=== PATIENT | male | born 1960 | race Caucasian/White ===

== ENCOUNTER 2017-05-12 10:04 | Emergency (ER) | payer OTHER ==
[~2017-05-12] VITALS: Ht 180.3 cm; Wt 93.0 kg
[~2017-05-12 10:04] MED LIST: ALBU18HF IH; CELE100C PO; CEPH-264 PO; ESOM20CA PO; FLUT12AE IH; LISI40TA PO
--- NOTE | 2017-05-12 10:23 | PHYS DOC ---
Past History Past Medical History: Bronchitis, Hypertension, Other Past Surgical History: Knee Replacement, Other Smoking: Cigarettes Alcohol Use: Occasionally Drug Use: None Adult General Chief Complaint Chief Complaint: CHEST PAIN HPI HPI Patient is a 56 year old M who presents with epigastric pain for the past 3 days. Patient states he is ran out of his Nexium and started having increasing epigastric pain and belching for the past 3 days. The pain has been persistent therefore decided to come the emergency room to be evaluated. Patient denies a history of MO or stents. Patient's only cardiac risk factors smoking and hypertension. Patient denies any fevers. Patient denies any nausea/vomiting/ diarrhea. Patient has no other complaints. Review of Systems Review of Systems GEN: Denies fevers, chills, sweats HEENT: Denies blurred vision, sore throat CV: Denies chest pain RESP: Denies shortness of air, cough GI: Epigastric pain NEURO: Denies confusion, dizziness MSK: Denies weakness, joint pain/swelling All other systems were reviewed and found to be within normal limits, except as documented in this note. Current Medications Current Medications Current Medications Medications (Trade) Dose Ordered Sig/Patria Start Time Stop Time Status Last Admin Dose Admin Multi-Ingredient Mouthwash/Gargle (Gi Cocktail) 20 ml 1X ONCE 05/12/17 10:30 05/12/17 10:31 UNV Allergies Allergies Allergies Coded Allergies Type Severity Reaction Last Updated Verified No Known Drug Allergies 08/25/15 No Physical Exam Physical Exam GEN.: No apparent distress. Alert and oriented. HEENT: Head is normocephalic, atraumatic NECK: Supple. LUNGS: CTAB. HEART: RRR, S1, S2 present. Peripheral pulses intact ABDOMEN: Soft, nontender. Positive bowel sounds. EXTREMITIES: Without any cyanosis. NEUROLOGIC: Normal speech, normal tone PSYCHIATRIC: Normal affect, normal mood. SKIN: No ulcerations Current Patient Data Vital Signs Laboratory Tests Test 05/12/17 10:21 White Blood Count 8.9 x10^3/uL Red Blood Count 4.50 x10^6/uL Hemoglobin 14.6 g/dL Hematocrit 42.5 % Mean Corpuscular Volume 94 fL Mean Corpuscular Hemoglobin 33 pg Mean Corpuscular Hemoglobin Concent 34 g/dL Red Cell Distribution Width 13.6 % Platelet Count 319 x10^3/uL Neutrophils (%) (Auto) 61 % Lymphocytes (%) (Auto) 29 % Monocytes (%) (Auto) 7 % Eosinophils (%) (Auto) 2 % Basophils (%) (Auto) 1 % Neutrophils # (Auto) 5.5 x10^3uL Lymphocytes # (Auto) 2.6 x10^3/uL Monocytes # (Auto) 0.6 x10^3/uL Eosinophils # (Auto) 0.2 x10^3/uL Basophils # (Auto) 0.1 x10^3/uL Sodium Level 137 mmol/L Potassium Level 4.0 mmol/L Chloride Level 102 mmol/L Carbon Dioxide Level 29 mmol/L Anion Gap 6 Blood Urea Nitrogen 19 mg/dL Creatinine 0.9 mg/dL Estimated GFR (Cockcroft-Gault) 87.6 BUN/Creatinine Ratio 21 Glucose Level 109 mg/dL Calcium Level 8.8 mg/dL Total Bilirubin 0.3 mg/dL Aspartate Amino Transf (AST/SGOT) 21 U/L Alanine Aminotransferase (ALT/SGPT) 24 U/L Alkaline Phosphatase 50 U/L Troponin I Quantitative < 0.017 ng/mL Total Protein 7.5 g/dL Albumin 3.8 g/dL Albumin/Globulin Ratio 1.0 Current Medications Medications (Trade) Dose Ordered Sig/Patria Route PRN Reason Start Time Stop Time Status Last Admin Dose Admin Multi-Ingredient Mouthwash/Gargle (Gi Cocktail) 20 ml 1X ONCE PO 05/12/17 11:00 05/12/17 11:01 DC 05/12/17 10:57 EKG EKG 1013: EKG shows normal sinus rhythm rate of 64 no STEMI[] Radiology/Procedures Radiology/Procedures Chest x-ray NAD[] Course & Med Decision Making Course & Med Decision Making Pertinent Labs and Imaging studies reviewed. (See chart for details) ED course: Patient was seen and examined emergency room a cardiac workup was ordered 1105: On reevaluation patient is chest pain-free and symptomatic free and feels much better and is ready go home. Discussed cardiac risk factors the patient. Patient went to go home and follow-up as an outpatient for further cardiac workup and a possible upper GI scope MDM: After reviewing the chart, CC/HPI/PMH, physical exam, [lab results], [ radiological results], I do not believe the patient having acute MO, (HEART score 3), PE (PERC neg), and low suspicion for acute thoracic aortic dissection. I think the patient has a low cardiac risk profile and can follow up as an outpatient for further cardiac workup. Also discussed the patient the possibility get an upper GI scope to further evaluate for reflux or an ulcer. Patient is stable for discharge. Additional verbal discharge instructions were provided to the patient and that if symptoms get worse or any new symptoms arise that are worrisome to the patient he is to return to the emergency room immediately [] Dragon Disclaimer Dragon Disclaimer This electronic medical record was generated, in whole or in part, using a voice recognition dictation system. Departure Departure: Impression: Primary Impression: Epigastric pain Additional Impression: Chest pain Disposition: 01 HOME, SELF-CARE Condition: IMPROVED Referrals: DOMI SINGH (PCP) Patient Instructions: Chest Pain (Nonspecific) Additional Instructions: Please follow-up with your family physician in the next one to 2 days for outpatient cardiac workup Problem Qualifiers ORA HEALY DO May 12, 2017 10:23
--- NOTE | 2017-05-12 10:27 | EKG ---
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
--- NOTE | 2017-05-12 10:38 | RAD ---
Portable chest, 05/12/2017: History: Chest and epigastric pain The heart size and pulmonary vascularity are normal. The lungs are clear. There is no evidence of pleural fluid. IMPRESSION: No acute cardiopulmonary abnormality is detected.
[2017-05-12 10:41] LABS: BASO # 0.1 x10^3/uL (0.0-0.2); BASO % 1 % (0-3); EOS # 0.2 x10^3/uL (0.0-0.7); EOS % 2 % (0-3); HEMATOCRIT 42.5 % (39.0-53.0); HEMOGLOBIN 14.6 g/dL (13.0-17.5); LYMPH # 2.6 x10^3/uL (1.0-4.8); LYMPH % 29 % (24-48); MEAN CORPUSCULAR HEMOGLOBIN 33 pg (25-35); MEAN CORPUSCULAR HGB CONC 34 g/dL (31-37); MEAN CORPUSCULAR VOLUME 94 fL (79-100); MONO # 0.6 x10^3/uL (0.0-1.1); MONO % 7 % (0-9); NEUT # 5.5 x10^3uL (1.8-7.7); NEUT % 61 % (31-73); PLATELET COUNT 319 x10^3/uL (140-400); RED CELL DISTRIBUTION WIDTH 13.6 % (11.5-14.5); WHITE BLOOD COUNT 8.9 x10^3/uL (4.0-11.0)
[2017-05-12 10:57] LABS: ALBUMIN 3.8 g/dL (3.4-5.0); CALCIUM 8.8 mg/dL (8.5-10.1); CREATININE 0.9 mg/dL (0.7-1.3); GFR 87.6; TOTAL BILIRUBIN 0.3 mg/dL (0.2-1.0); TOTAL PROTEIN 7.5 g/dL (6.4-8.2)
[2017-05-12] MEDS ORDERED: LIDO:MAALOX 1:1 20 ML SINGLE DOSE PO ONE (11:00)
[2017-05-12 11:31] VITALS: BP 123/75
== END 2017-05-12 11:31 | disposition home or self-care (01) ==
LOC: ER 10:04
DX: R10.13 Epigastric pain (principal); R07.9 Chest pain, unspecified; I10 Essential (primary) hypertension; F17.210 Nicotine dependence, cigarettes, uncomplicated
CPT/HCPCS: 36415; 71010; 80053; 84484; 85025; 93005; 99285-25

== ENCOUNTER 2018-02-01 01:23 | Emergency (ER) | payer OTHER ==
[~2018-02-01] VITALS: Ht 180.3 cm; Wt 93.0 kg
--- NOTE | 2018-02-01 01:50 | PHYS DOC ---
Past History Past Medical History: Bronchitis, High Cholesterol, Hypertension, Other Past Surgical History: Knee Replacement, Other Smoking: Cigarettes Alcohol Use: Occasionally Drug Use: None Adult General Chief Complaint Chief Complaint: SHORTNESS OF BREATH HPI HPI 57-year-old male presents with report of sudden shortness of breath with associated diaphoresis and nonproductive cough which started this evening. Reports some chest "discomfort" which he attributed to some heartburn after eating a spicy dinner. Denies leg swelling or calf tenderness. Denies known trauma. Cardiac risk factors of high blood pressure, high cholesterol, and smoking. Patient thinks he might also be "prediabetic ". Denies history or family history of PE/DVT. Review of Systems Review of Systems Constitutional: Denies fever, reports generalized malaise Eyes: Denies change in visual acuity, redness, or eye pain [] HENT: Denies nasal congestion or sore throat [] Respiratory: Reports nonproductive cough and shortness of breath Cardiovascular: Reports chest pain, denies syncope GI: Denies abdominal pain, nausea, vomiting, or diarrhea [] : Denies dysuria or hematuria [] Musculoskeletal: Denies back pain or leg swelling Integument: Denies rash or skin lesions [] Neurologic: Denies headache, focal weakness or sensory changes []] Complete systems were reviewed and found to be within normal limits, except as documented in this note. Current Medications Current Medications Current Medications Medications (Trade) Dose Ordered Sig/Patria Start Time Stop Time Status Last Admin Dose Admin Albuterol/ Ipratropium (Duoneb) 3 ml 1X ONCE 02/01/18 02:00 02/01/18 02:01 Aspirin (Nancy Aspirin) 325 mg 1X ONCE 02/01/18 02:00 02/01/18 02:01 Dexamethasone Sodium Phosphate (Decadron) 10 mg 1X ONCE 02/01/18 02:00 02/01/18 02:01 Sodium Chloride 1,000 ml @ 1,000 mls/hr 1X ONCE 02/01/18 02:00 02/01/18 02:59 Allergies Allergies Allergies Coded Allergies Type Severity Reaction Last Updated Verified No Known Drug Allergies 08/25/15 No Physical Exam Physical Exam Constitutional: Well developed, well nourished, no acute distress, Eyes: PERRLA, EOMI, conjunctiva normal, no discharge. [] Neck: Normal range of motion, no tenderness, supple, no stridor. [] HENT: Normocephalic, atraumatic, oropharynx moist Cardiovascular: Heart rate regular rhythm, no murmur [] Lungs & Thorax: Diminished breath sounds at bases, no wheezes or rales Abdomen: Soft, no tenderness, no masses, no pulsatile masses. [] Skin: Warm, no erythema, no rash. Diaphoresis noted. Back: No tenderness, no CVA tenderness. [] Extremities: No calf tenderness, ROM intact, no edema. [] Neurologic: Alert and oriented X 3, normal motor function, normal sensory function[] Psychologic: Affect normal, judgement normal, mood normal. [] EKG EKG NSR at 67bpm, No ST elevation. Obtained at 0155 on 02/01/18. Radiology/Procedures Radiology/Procedures CXR 2 view (Preliminary interpretation by ED physician): No acute process. Course & Med Decision Making Course & Med Decision Making Pertinent Labs and Imaging studies reviewed. (See chart for details) Patient presents with report of sudden shortness of breath with associated nonproductive cough and chest discomfort. Patient does report some diaphoresis. Patient does have cardiac risk factors. EKG obtained and without acute process. ASA ordered but RN held due to patient taking home dose prior to arrival. Labs obtained and posted to chart. Initial troponin WNL. D-dimer also WNL. CXR without acute process. Duoneb and IV steroid provided. Patient reports interval resolution of symptoms. Discussed findings and plan with patient and family, who acknowledge understanding and agreement. Given cannot fully exclude cardiac etiology and patient with significant risk factors, patient offered observation admission for further evaluation and treatment. Patient declines admission and reports he will follow closely with PCP and/or warehouse logistics coordinator. Discussed concern of risk factors with reports of sudden SOA with diaphoresis and requesting patient reconsider obs admission. Patient still declines admission. Patient educated on risks of leaving AMA. Patient acknowledges understanding and agreement with taking on risk of permanent disability and/or by leaving AMA. Dragon Disclaimer Dragon Disclaimer This electronic medical record was generated, in whole or in part, using a voice recognition dictation system. Departure Departure: Impression: Primary Impression: Shortness of breath Additional Impression: Diaphoresis Disposition: AGAINST MEDICAL ADVICE Condition: GUARDED Patient Instructions: Diaphoresis, Discharge Against Medical Advice, Shortness of Breath Scripts Prednisone (PREDNISONE) 20 Mg Tablet 2 TAB PO DAILY for 5 Days, #10 TAB Prov: PEE RODRIGUEZ DO 02/01/18 Problem Qualifiers PEE RODRIGUEZ DO Feb 01, 2018 01:50
[2018-02-01 01:54] VITALS: BP 105/39
[2018-02-01] MEDS ORDERED: IPRATRPIUM/ALBUTEROL 0.5/2.5MG 3 ML NEBU. NEB ONE (02:00)
[2018-02-01] MEDS ORDERED: ASPIRIN 325 MG TABLET PO ONE (02:00)
[2018-02-01] MEDS ORDERED: IV NORMAL SALINE 1,000ML 1,000 ML IV ONE (02:00)
[2018-02-01] MEDS ORDERED: DEXAMETHASONE SOD PHOS 10 MG/ML VIAL IV ONE (02:00)
[2018-02-01 02:07] LABS: BASO # 0.1 x10^3/uL (0.0-0.2); BASO % 1 % (0-3); EOS # 0.3 x10^3/uL (0.0-0.7); EOS % 3 % (0-3); HEMOGLOBIN 13.7 g/dL (13.0-17.5); LYMPH # 3.7 x10^3/uL (1.0-4.8); LYMPH % 37 % (24-48); MEAN CORPUSCULAR HEMOGLOBIN 32 pg (25-35); MEAN CORPUSCULAR HGB CONC 34 g/dL (31-37); MEAN CORPUSCULAR VOLUME 94 fL (79-100); MONO # 1.3 x10^3/uL (0.0-1.1); MONO % 13 % (0-9); NEUT # 4.6 x10^3uL (1.8-7.7); NEUT % 46 % (31-73); PLATELET COUNT 311 x10^3/uL (140-400); RED BLOOD COUNT 4.25 x10^6/uL (4.30-5.70); RED CELL DISTRIBUTION WIDTH 14.3 % (11.5-14.5); WHITE BLOOD COUNT 9.9 x10^3/uL (4.0-11.0)
[2018-02-01 02:36] LABS: ALBUMIN 3.6 g/dL (3.4-5.0); ALBUMIN/GLOBULIN RATIO 1.1 (1.0-1.7); CALCIUM 8.7 mg/dL (8.5-10.1); GFR 77.3; MAGNESIUM 1.9 mg/dL (1.8-2.4); TOTAL BILIRUBIN 0.1 mg/dL (0.2-1.0); TOTAL PROTEIN 6.9 g/dL (6.4-8.2)
--- NOTE | 2018-02-01 03:05 | EKG ---
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
[2018-02-01] MEDS ORDERED: PRED20TA PO (03:14)
--- NOTE | 2018-02-01 07:21 | RAD ---
EXAM: CHEST 1 VIEW. HISTORY: Shortness of breath, cough. COMPARISON: May 12, 2017. FINDINGS: A frontal view of the chest is obtained. There are no confluent infiltrates. There is no pneumothorax or pleural effusion. The heart is not enlarged. IMPRESSION: 1. No confluent infiltrates. Electronically signed by: Remedios Miramontes MD (02/01/2018 7:18 AM) [facility]
== END 2018-02-01 03:33 | disposition left against medical advice (07) ==
LOC: ER 01:23
DX: R06.02 Shortness of breath (principal); R61 Generalized hyperhidrosis; R07.9 Chest pain, unspecified; E78.00 Pure hypercholesterolemia, unspecified; I10 Essential (primary) hypertension; F17.210 Nicotine dependence, cigarettes, uncomplicated
CPT/HCPCS: 36415; 71046; 80053; 82553; 83605; 83735; 83880; 84484; 85025; 85379; 93005; 94640; 96374; 99285; J1100; J7620; J7030

== ENCOUNTER → 2018-04-27 | Outpatient (CLI) | payer OTHER ==
[2018-03-05 22:00] VITALS: BP 106/69
[~2018-04-27] MED LIST changes: +PRED20TA PO
[2018-04-27] MEDS: IOHEXOL 300 MG/ML 50 ML VIAL. IV ONE (09:51)
--- NOTE | 2018-04-27 13:08 | RAD ---
PQRS Compliance statement: One or more of the following individualized dose reduction techniques were utilized for this examination: 1. Automated exposure control. 2. Adjustment of the mA and/or kV according to patient size. 3. Use of iterative reconstruction technique. Indication:Abnormal sono, blockage right femoral. 100ml OMNI 300
TECHNIQUE: CT angiogram of the abdomen and pelvis with bilateral lower extremity runoff with contrast with multiplanar MIP reformats. 3-D postprocessing was performed. COMPARISON: None FINDINGS: Heart is normal in size. No pericardial or effusion. Clear lung bases. Liver, spleen, gallbladder, pancreas, adrenals and right kidney within normal limits. 6 mm nonobstructing stone in the left kidney. No enlarged retroperitoneal or pelvic adenopathy. No free pelvic fluid or ascites. No bowel obstruction. The prostate and seminal vesicles show no large mass. Urinary bladder within normal limits. Scattered mild to moderate diffuse atherosclerotic disease of the abdominal aorta. The celiac axis, splenic artery, left gastric artery, common hepatic artery, SMA, lateral renal arteries are patent. Mild noncalcified plaque is seen at the proximal segment of the SMA. Mild right and moderate amount of left calcified plaque is seen at the origin of the bilateral renal arteries. [place] is patent. Moderate diffuse atherosclerotic plaque is seen in the bilateral common iliac arteries with approximately 50 percent narrowing of the proximal right common leg artery and left common iliac artery. Mild diffuse atherosclerotic disease seen of the bilateral internal iliac arteries. The bilateral external iliac arteries are within normal limits. Mild atherosclerotic disease seen of the bilateral common femoral arteries, right more than left with approximately 25-40 percent narrowing of the right MIXOLOGIST. The bilateral profunda femoris arteries are patent. The bilateral SFA are patent with moderate atherosclerotic disease in the distal right SFA with approximately 50-60 percent narrowing. Focal 60-70 percent narrowing of the left distal SFA. The bilateral popliteal arteries are patent. Evaluation of popliteal artery in the left popliteal fossa is limited due to streak artifact from left vertebral plasty. The distal popliteal arteries are bilaterally patent. Mild bilateral atherosclerotic disease of the popliteal arteries. The right anterior tibial artery is patent up to the level of mid foot. The right peroneal artery is patent up to the level of ankle. The right posterior tibial artery is patent up to the level of mid foot. The left anterior tibial artery is visualized up to the level of distal leg. The left peroneal artery is visualized level of distal leg. The left posterior tibial artery is patent up to the level of plantar branches. Mild atherosclerotic disease seen of the trifurcation in the left and right neck. Moderate left and small right knee joint effusion. Moderate right knee joint arthritis. No suspicious bony lesion. IMPRESSION: 1. Multifocal moderate atherosclerotic disease of the aorta and bilateral lower extremity arteries with approximate narrowing as described above. 2. Nonobstructing left renal stone. Electronically signed by: Cliff Maravilla DO (04/27/2018 1:05 PM) [facility]
== END | disposition home or self-care (01) ==
LOC: CT 09:07
PROVIDERS: ATTEND Specialist
DX: I70.0 Atherosclerosis of aorta (principal); N20.0 Calculus of kidney; M25.462 Effusion, left knee; M25.461 Effusion, right knee; M17.11 Unilateral primary osteoarthritis, right knee; I70.293 Other atherosclerosis of native arteries of extremities, bilateral legs; I10 Essential (primary) hypertension
CPT/HCPCS: 75635; Q9967

== ENCOUNTER → 2020-06-09 | Outpatient (CLI) | payer OTHER ==
[2018-03-05 22:00] VITALS: BP 106/69
[~2020-06-09] MED LIST changes: -ALBU18HF IH; +ALBU2.5V8 IH
--- NOTE | 2020-06-09 13:34 | RAD ---
XR KNEE_RT 1-2 VIEWS, XR KNEE_AP BILAT STANDING 06/09/2020 8:54 AM INDICATION: Right knee pain COMPARISON: None available. TECHNIQUE: 3 views the right knee including a contralateral centimeters the left knee provided. FINDINGS/ IMPRESSION: 1. Small knee joint effusion. 2. There is moderate patellofemoral joint space narrowing with marginal osteophytosis compatible with moderate osteoarthrosis. There is mild medial and moderate lateral femorotibial osteoarthrosis with joint space narrowing, subcortical sclerosis and marginal osteophytosis. Mineralization along the lat eral femorotibial joint space could reflect chondrocalcinosis as may be seen with CPPD deposition. 3. No acute fracture is identified. Vascular calculations are identified. No dislocation. 4. Left total knee arthroplasty is identified without evidence for hardware failure. Electronically signed by: Shanell Manzo MD (06/09/2020 10:13 AM) [facility]
== END ==
LOC: DXRAD 08:50
PROVIDERS: ATTEND Physician Assistant
DX: M17.11 Unilateral primary osteoarthritis, right knee (principal); M25.761 Osteophyte, right knee; M25.461 Effusion, right knee; Z96.652 Presence of left artificial knee joint
CPT/HCPCS: 73560; 73565

== ENCOUNTER → 2021-09-17 | Outpatient (CLI) | payer OTHER ==
[2018-03-05 22:00] VITALS: BP 106/69
[~2021-09-17] MED LIST changes: -LISI40TA PO; +LISI40TA6 PO
--- NOTE | 2021-09-17 16:04 | RAD ---
XR KNEE_RT 1-2 VIEWS, XR KNEE_AP BILAT STANDING History: Reason: right knee pain / Spl. Instructions: / History: Technique: AP standing view bilateral knees additional views of the right knee. Comparison: June 09, 2020 Findings: Right knee: Moderate knee degenerative changes most prominent within the medial and patellofemoral co mpartment. Chondrocalcinosis. Minimal knee joint effusion. No dislocation. No acute fracture. Vascula r calcifications. Left total knee arthroplasty. Impression: 1. Moderate right knee DJD with chondrocalcinosis, unchanged. Electronically signed by: Oleg Calderon DO (09/17/2021 4:02 PM) [id number]
== END ==
LOC: RAD 12:20
PROVIDERS: ATTEND Physician Assistant
DX: M17.11 Unilateral primary osteoarthritis, right knee (principal); M11.261 Other chondrocalcinosis, right knee; M25.461 Effusion, right knee; Z96.651 Presence of right artificial knee joint
CPT/HCPCS: 73560; 73565